=== PATIENT | male | born 1955 | race Caucasian/White ===

== ENCOUNTER 2020-11-19 17:10 | Inpatient (IN) ==
[2020-11-19] MEDS ORDERED: ONDANSETRON INJ 2 MG/ML 2 ML VIAL IV PRN (17:21)
[2020-11-19] MEDS ORDERED: diphenhydrAMINE Capsule 25 MG CAP PO PRN (17:21)
[2020-11-19] MEDS ORDERED: ALUMINUM/MAGNESIUM SUSP 30 ML UDC PO PRN (17:21)
[2020-11-19] MEDS ORDERED: diphenhydrAMINE 50 MG/ML VIAL IV PRN (17:21)
[2020-11-19] MEDS ORDERED: ACETAMINOPHEN 325 MG TAB PO PRN (17:21)
[2020-11-19] MEDS ORDERED: PIPERACILL/TAZOBAC CONSULT ACTIVE PRN (17:28)
[2020-11-19] MEDS ORDERED: VANCOMYCIN CONSULT ACTIVE PRN ×2 (17:28)
[2020-11-19] MEDS ORDERED: oxyCODONE HCL IR 5 MG TAB (IMMEDIATE RELEASE) PO PRN (17:28)
[2020-11-19] MEDS ORDERED: PIPERACILLIN/TAZOBACTAM 3.375 GM in DEXTROSE 5% 100 ML IV SCH (17:30)
[2020-11-19] MEDS ORDERED: VANCOMYCIN HCL 1,000 MG in SODIUM CHLORIDE 0.9% 250 ML IV SCH (17:30)
[2020-11-19] MEDS ORDERED: PATIENT'S HEIGHT AND/OR WEIGHT NEEDED SCH (18:30)
[2020-11-19] MEDS ORDERED: VANCOMYCIN HCL 2,500 MG in SODIUM CHLORIDE 0.9% 500 ML IV STA (18:56)
[2020-11-19] MEDS ORDERED: PIPERACILLIN/TAZOBACTAM 4.5 GM in DEXTROSE 5% 100 ML IV STA (18:59)
--- NOTE | 2020-11-19 19:05 | XRay Report ---
XR chest 2V PA/lateral HISTORY: 65 years-old Male preop/malaise acute malaise COMPARISON: Chest radiograph 04/01/2009 TECHNIQUE: PA and lateral views of the chest FINDINGS: Cardiac mediastinal and hilar silhouettes are within normal limits. No pneumothorax, pleural effusion or overt pulmonary edema. Minimal ill-defined left lung base opacities. Bones appear grossly intact. IMPRESSION: Minimal left lower lobe opacities suggest summation density/atelectasis. ACT 112: Negative or not required by law. The above report was generated using voice recognition software. It may contain grammatical, syntax o r spelling errors. Electronically signed by: Ronnie Greenfield M.D. 11/19/2020 7:04 PM
[2020-11-19 19:40] LABS: Basophils # (auto) 0.04 K/uL (0-0.2); Basophils % (auto) 0.2 %; Eosinophils # (auto) 0.01 K/uL (0-0.5); Hemoglobin 14.6 g/dL (14.0-18.0); Immature Granulocytes # (auto) 0.11 K/uL (0.00-0.02); Immature Granulocytes % (auto) 0.5 %; Lymphocytes # (auto) 1.87 K/uL (1.2-3.4); Mean Corpuscular Hemoglobin 31.4 pg (25-34); Mean Corpuscular Volume 92.5 fL (80-100); Mean Platelet Volume 10.8 fL (7.4-10.4); Monocytes # (auto) 1.59 K/uL (0.11-0.59); Monocytes % (auto) 7.6 %; Neutrophils # (auto) 17.27 K/uL (1.4-6.5); Neutrophils % (auto) 82.7 %; Platelet Count 186 K/uL (130-400); RDW Coefficient of Variation 13.2 % (11.5-14.5); RDW Standard Deviation 44.4 fL (36.4-46.3); Red Blood Count 4.65 M/uL (4.7-6.1); White Blood Count 20.89 K/uL (4.8-10.8)
[2020-11-19 20:06] LABS: Albumin Level 3.4 gm/dl (3.4-5.0); BUN Creatinine Ratio 15.6 (10-20); Calcium 8.8 mg/dl (8.5-10.1); Creatinine Clr Calc Pharmacy 70.6 ml/min; Est GFR (African American) 61.7; Est GFR (Non-African American) 53.3; Potassium 4.4 mmol/L (3.5-5.1)
[2020-11-19 20:09] LABS: Albumin Globulin Ratio 0.9 (0.9-2); Bilirubin,Total 0.7 mg/dl (0.2-1); C Reactive Protein 13.3 mg/dl (0-0.29); Globulin 3.7 gm/dl (2.5-4.0); Total Protein 7.1 gm/dl (6.4-8.2)
--- NOTE | 2020-11-19 20:12 | Hospitalist Consultation ---
Date of Consultation November 19, 2020 Assessment & Plan (1) Suspected soft tissue infection: Infected seroma vs tissue infection Patient on appropriate antibiotics with appropriate cultures sent - Continue Zosyn and Vancomycin as this will provide excellent coverage as you have done- await culture return - Follow biomarkers as you have done- added on PCT and lactate - SIRS-3, qSOFA 0, LRINEC score 5 - As per HPI no local cellulits at site or at surrounding tissue ID consult is available through ID consult and will go to [facility] if further expertise is needed. (2) Metabolic syndrome: Continue statin, and glucose control, patient is controlling his weight with activity (3) Hyperlipidemia: As above (4) Type 2 diabetes mellitus: Hold metformin- placed on sliding scale for goal <180 - tighter control if desired by primary team - NPO after midnight per primary team (5) DVT prophylaxis: Heparin 5000 sub q BID per primary team SCD's Supervising Physician Co-Signing Physician Notes Attending Attestation: Pt seen/examined, chart reviewed, care plan d/w MEGHAN Villarreal. I agree w/ the matos components of his documentation. 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 Most recently he has had a left leg seroma requiring placement of pigtail catheter to hasten resolution of the seroma. Sclerotherapy was being attempted to resolve the seroma as well. Unfortunately he developed subjective fever and increasing pain along the course of the seroma worrisome for infection. Saw Dr Mathews who aspirated 15cc of pink-appearing fluid. Admitted for IV abx and probable I/D of seroma. PMH, PSH, allergies, meds, sochx, famhx - reviewed VSS, no fever gen - NAD, obese mouth - no thrush heart - RRR, s1 s2, no murmur lungs - CTA b/l abd - soft NT BS+ ext - large dressing on lateral left thigh; several old scars left lateral leg; pulses b/l legs 2+ labs reviewed last a1c 6.2% culture from ortho office pending A/P: 1. suspected infected left leg seroma - agree with zosyn/vanco while awaiting cultures; to OR in am for wash-out/I & D 2. obesity 3. pre-DM/early T2DM 4. [facility] will cont to follow. Thanks for consult. Craig Basilio MD History of Present Illness Reason for Consultation: Antibiotics Attending Physician: Duglas Mathews MD History of Present Illness 65 YOM with past medical history of; DM II, sinusitis, sleep apnea, HLD, Fatty liver, DJD, Necrotizing fascitis of left buttocks, chronic infected seroma, BPH. Patient is direct admission from Orthopaedics Dr. Mathews for infected seroma. The patient has been battling this seroma since last February. Originally the patient had a ruptured hamstring with gluteal tendon involvement in October 2019 developed local infection that turned out to be necrotizing fascitis. He went to [place] to have his leg debrided and operated, was closed here locally with wound-vac and close orthopaedics followup. His recovery from this has been undergone sclerotherapy, biological sclerotherapy, and aspirations of this chronic seroma. Most recently in October the patient had a pigtail drain that was placed and continued with doxycycline sclerotherapy and was doing well up until last evening. He started experiencing fevers with rigors at home and was seen by Dr. Mathews today. He withdrew fluid and sent for cultures, sent for admission and is scheduled for drainage and exploration tomorrow. The patient is stable on the floor qSOFA-0; SIRS-3 LRINEC-5 Thank you for allowing us to participate in his care. Allergies Allergy/AdvReac Type Severity Reaction Status Date / Time grass pollen Allergy Verified 10/23/20 10:07 No Known Drug Allergies Allergy Verified 10/23/20 10:07 Home Medications Medication Instructions Recorded Confirmed Type acetaminophen [Tylenol Extra 1,000 mg PO Q8H PRN 11/28/19 10/23/20 History Strength] zinc sulfate [Zinc-220] 1 mg PO DAILY 12/28/19 10/23/20 History atorvastatin 40 mg tablet 40 mg PO HS #30 tab 07/15/20 10/23/20 Rx sildenafil (pulm.hypertension) 20 80 mg PO PRN PRN #120 tab 09/20/20 10/23/20 Rx mg tablet ascorbic acid (vitamin C) 1,000 mg 2 g PO HS tab 10/09/20 10/23/20 History tablet cholecalciferol (vitamin D3) 125 1,500 unit PO DAILY cap 10/09/20 10/23/20 History mcg (5,000 unit) capsule metformin 500 mg tablet 1,500 mg PO DAILY tab 10/09/20 10/23/20 History mecobalamin (vitamin B12) 1,000 1,000 mcg SUBLINGUAL DAILY #30 tab 10/23/20 10/23/20 Rx mcg disintegrating tablet,sublingual enoxaparin 40 mg SUBCUT QAM 14 Days #5.6 ml 11/21/20 Rx oxycodone 5 - 10 mg PO Q4H PRN #12 tab MDD 6 11/22/20 Rx tablets Patient History Medical History Degenerative disc disease, lumbar 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 REASON) Obesity Open wound of thigh with tendon involvement LEFT LOWER EXTREMITY Prediabetes Radicular pain of lower extremity Sensorineural hearing loss (SNHL) of both ears Sensorineural hearing loss (SNHL) of both ears Surgical History History of appendectomy History of colonoscopy History of herniorrhaphy LEFT INGUINAL History of incision and drainage LEFT UPPER BACK THIGH I & D D/T NECROTIZING FASCIITIS (TOTAL 4 SURGERIES). Hx of vasectomy [place] teeth removed Family History Grandmother (Maternal) Family history of diabetes mellitus Father Cancer Leukemia Grandfather Heart disease Brother Asthma FH: kidney cancer Denies family history of Ovarian cancer Prostate cancer Myocardial infarction Breast cancer Colorectal cancer Social History Smoking Status: Never smoker Second Hand Exposure: No; Hx Alcohol Use: Yes Alcohol type: beer Alcohol Intake Frequency: 4 or More x per/Week Hx Substance Use: No Preferred Language: Khmer Communication Ability: Effective Visual Impairment: No Limitations Hearing Ability: Normal Youth Manager Required: No Beliefs That Will Affect Care: None marital status: Current Living Situation: Spouse current occupational status: employed current occupation: [employer] How many Children do You have: 4 Other Information That Helps Us Care for You: No Feels Safe at Home: Yes Safety Concerns: Feels Safe At This Time Childhood Exposure to Second-Hand Smoke: No during the past year weight has: remained stable Dental Care, Regularly: Yes Physical Activity Frequency: Does not Exercise Seatbelt Use: never Sunscreen Use: Yes Assistive Devices: Cane and Glasses Review of Systems Review of Systems: REVIEW OF SYSTEMS: Constitutional: (+) fever, sweats or chills- since resolved Eyes: No diplopia, no worsening or blurred vision ENT: normal hearing, no trouble swallowing Respiratory: No cough, sputum, dyspnea at rest or on exertion Cardiovascular: No chest pain, tightness or palpitations Abdomen: No pain, nausea, vomiting, diarrhea or constipation Musculoskeletal: (+) tenderness to left hamstring area, No joint pain, calf pain, swelling Neurologic: No weakness, numbness/tingling, or balance problems Psychiatric: No anxiety or depression Skin: No rash or itch Physical Exam Physical Exam: PHYSICAL EXAM: General: awake, alert, no apparent distress Head: Normocephalic, atraumatic ENT: PERRL, EOMI, no pharyngeal exudate, mucous membranes moist Neuro: AAO x 3, speech clear and appropriate, strength intact bilaterally 5/5, sensation intact and equal all extremities and dermatomes, no pronator drift Chest: equal rise and fall of the chest, no accessory muscle use, no heaves or thrills, Clear to auscultation, on room air, Cardiac: Regular rate and rhythm, skin warm dry, cap refill <3 seconds, peripheral pulses +2 no JVD, no murmur, no edema GI: NABS x 4 quadrants, soft, nontender to palpation, no rebound, guarding or tenderness : Spontaneously voiding, no pain, no CVA tenderness, Extremities: Normal inspection, no peripheral edema or erythema, calfs nontender to palpation, no errythema, mild pain with palpation of seroma area. The patient has 3x4 area of fluid collection that is not fluctuant, no pain with surrounding muscle palpation. Joints below and above are not sore, no crepitus, and full ROM. Slight tenderness with deep palpation to left glute. Psych: Normal mood and affect Skin: no rash or erythema Results & Data Results & Data ([facility]) Vital Signs (Past 12 Hours) Vital Signs Temp Pulse Resp BP Pulse Ox 11/19/20 17:55 37.5 C 95 H 20 144/73 H 95 Laboratory Results Abnormal lab results 11/19/20 11/19/20 11/19/20 Range/Units 19:11 19:11 19:11 WBC 20.89 H (4.8-10.8) K/uL RBC 4.65 L (4.7-6.1) M/uL MPV 10.8 H (7.4-10.4) fL Neut # (Auto) 17.27 H (1.4-6.5) K/uL [place] # (Auto) 1.59 H (0.11-0.59) K/uL Immature Gran # (Auto) 0.11 H (0.00-0.02) K/uL ESR 17 H (0-14) mm/hr Chloride 109 H (98-107) mmol/L Anion Gap 0 L (3-11) BUN 22 H (7-18) mg/dl Glucose 137 H (70-99) mg/dl C-Reactive Protein 13.30 H (0-0.29) mg/dl Diagnostic Findings NONE Medications Administered Vancomycin HCl 2,500 mg/ (Sodium Chloride) 550 mls @ 200 mls/hr IV NOW STA; Protocol Stop: 11/19/20 21:40 Last Infusion: 11/19/20 20:03 Dose: 0 mls/hr Documented by: [id number] Admin: 11/19/20 20:02 Dose: 200 mls/hr Documented by: [id number] Discontinued Medications Home Medications acetaminophen [Tylenol Extra Strength] 1,000 mg PO Q8H PRN 11/28/19 [History Confirmed 10/23/20] zinc sulfate [Zinc-220] 1 mg PO DAILY 12/28/19 [History Confirmed 10/23/20] atorvastatin 40 mg tablet 40 mg PO HS #30 tab 07/15/20 [Rx Confirmed 10/23/20] sildenafil (pulm.hypertension) 20 mg tablet 80 mg PO PRN PRN #120 tab 09/20/20 [Rx Confirmed 10/23/20] ascorbic acid (vitamin C) 1,000 mg tablet 2 g PO HS tab 10/09/20 [History Confirmed 10/23/20] cholecalciferol (vitamin D3) 125 mcg (5,000 unit) capsule 1,500 unit PO DAILY cap 10/09/20 [History Confirmed 10/23/20] metformin 500 mg tablet 1,500 mg PO DAILY tab 10/09/20 [History Confirmed 10/23/20] mecobalamin (vitamin B12) 1,000 mcg disintegrating tablet,sublingual 1,000 mcg SUBLINGUAL DAILY #30 tab 10/23/20 [Rx Confirmed 10/23/20] Active Medications Acetaminophen (Acetaminophen 325 Mg Tab) 650 mg PO Q6H PRN PRN Reason: Fever or Headache Stop: 12/19/20 17:20 Al Hydrox/Mg Hydrox/Simethicone (Aluminum/Magnesium Susp 30 Ml Udc) 30 ml PO Q6H PRN PRN Reason: Dyspepsia Stop: 12/19/20 17:20 Diphenhydramine HCl (Diphenhydramine Capsule 25 Mg Cap) 25 mg PO Q8H PRN PRN Reason: Itching Stop: 12/19/20 17:20 Diphenhydramine HCl (Diphenhydramine 50 Mg/Ml Vial) 25 mg IV Q8H PRN PRN Reason: Itching Stop: 12/19/20 17:20 Heparin Sodium (Porcine) (Heparin Sod 5,000 Unit/0.5 Ml Vial) 5,000 units SQ Q12 MISTY Stop: 12/19/20 20:59 Sodium Chloride (Nss 1000ml) 1,000 mls @ 100 mls/hr IV .Q10H MISTY Stop: 12/20/20 00:04 Vancomycin HCl 1,000 mg/ (Sodium Chloride) 270 mls @ 200 mls/hr IV Q12H MISTY; Protocol Stop: 11/21/20 17:29 Piperacillin Sod/Tazobactam (Sod 3.375 gm/ Dextrose) 115 mls @ 28.75 mls/hr IV Q8H MISTY; Protocol Stop: 11/21/20 17:29 Vancomycin HCl 2,500 mg/ (Sodium Chloride) 550 mls @ 200 mls/hr IV NOW STA; Protocol Stop: 11/19/20 21:40 Last Infusion: 11/19/20 20:03 Dose: 0 mls/hr Documented by: Miscellaneous Information (Vancomycin Consult Active) 1 ea N/A UD PRN PRN Reason: Consult Stop: 12/19/20 17:27 Miscellaneous Information (Piperacill/Tazobac Consult Active) 1 ea N/A UD PRN PRN Reason: Consult Stop: 12/19/20 17:27 Ondansetron HCl (Ondansetron Inj 2 Mg/Ml 2 Ml Vial) 4 mg IV Q6H PRN PRN Reason: Nausea/Vomiting Stop: 12/19/20 17:20 Oxycodone HCl (Oxycodone Hcl Ir 5 Mg Tab (Immediate Release)) 5 mg PO NOW PRN PRN Reason: Pain Stop: 12/03/20 17:27 Piperacillin Sod/Tazobactam (Sod 4.5 gm/ Dextrose) 120 mls @ 200 mls/hr IV NOW STA; Protocol Stop: 11/19/20 19:34 Last Admin: 11/19/20 20:04 Dose: 200 mls/hr Documented by: [id number] Miscellaneous (Patient's Height And/Or Weight Needed) 1 ea N/A Q30M MISTY Stop: 12/19/20 18:29 Last Admin: 11/19/20 19:11 Dose: Not Given Documented by: [id number] ECG Additional Comments: Normal sinus rhythm Normal ECG When compared with ECG of 30-OCT-2019 13:01, No significant change was found PG Care Time/CCT Total # of Minutes Spent Total Time Spent with Patient: Total time spent is greater than 50% in coordination of care (as documented) at patient's floor/unit and/or counseling patient: Coding Level of Care Code 27601 Inpt Consult Level 3 Diagnoses Suspected soft tissue infection R68.89 Metabolic syndrome E88.81 Hyperlipidemia E78.5 Hyperlipidemia type: unspecified Type 2 diabetes mellitus E11.69 Diabetes mellitus complication status: with other specified complication Diabetes mellitus vibratory pile driver insulin use: without vibratory pile driver use DVT prophylaxis Z29.9 (1) Type 2 diabetes mellitus Diabetes mellitus complication status: with other specified complication Diabetes mellitus vibratory pile driver insulin use: without vibratory pile driver use Qualified Code(s): E11.69 - Type 2 diabetes mellitus with other specified complication (2) Hyperlipidemia Hyperlipidemia type: unspecified Qualified Code(s): E78.5 - Hyperlipidemia, unspecified
--- NOTE | 2020-11-19 20:36 | History & Physical Report ---
Date of Service November 19, 2020 Assessment & Plan (1) Suspected soft tissue infection: (2) Traumatic seroma of left thigh: History of Present Illness Chief Complaint: Left thigh pain, malaise Primary Care Provider: Jamie Juarez DO 65-year-old male with a history significant for October 2019 left posterior thigh deep soft tissue necrotizing fasciitis, treated with radical debridement before transfer to [facility], and subsequent large wound closure with serial wound VAC and delayed primary closure, complicated by subcutaneous seroma formation for the past several months. He had been undergoing outpatient sclerotherapy which did reduce the seromatous fluid production. 6 days ago, a percutaneous pigtail catheter was placed for residual seromatous fluid formation. The doxycycline sclerotherapy treatment was performed again at the time of percutaneous insertion with a 48-hour dwell time before continuous suction drainage. Unfortunately, he developed mild pain along his left buttock, malaise, and subjective fever today. He contacted our clinic and we evaluated him today. His drain site looked well, but I was able to pull off 15 cc of pink purulent drainage, which was significantly different from previous serous drainage. The drain or catheter was pulled in clinic, and the aspiration was sent for culture. I recommended admission today for empiric antibiotics and subsequent irrigation debridement of the posterior thigh. He reported tolerable pain but admitted fatigue. He was able to walk. He denies any chest pain. He has been Covid vaccinated for 2 weeks. Allergies Allergy/AdvReac Type Severity Reaction Status Date / Time grass pollen Allergy Verified 10/23/20 10:07 No Known Drug Allergies Allergy Verified 10/23/20 10:07 Home Medications Medication Instructions Recorded Confirmed Type acetaminophen [Tylenol Extra 1,000 mg PO Q8H PRN 11/28/19 10/23/20 History Strength] zinc sulfate [Zinc-220] 1 mg PO DAILY 12/28/19 10/23/20 History atorvastatin 40 mg tablet 40 mg PO HS #30 tab 07/15/20 10/23/20 Rx sildenafil (pulm.hypertension) 20 80 mg PO PRN PRN #120 tab 09/20/20 10/23/20 Rx mg tablet ascorbic acid (vitamin C) 1,000 mg 2 g PO HS tab 10/09/20 10/23/20 History tablet cholecalciferol (vitamin D3) 125 1,500 unit PO DAILY cap 10/09/20 10/23/20 History mcg (5,000 unit) capsule metformin 500 mg tablet 1,500 mg PO DAILY tab 10/09/20 10/23/20 History mecobalamin (vitamin B12) 1,000 1,000 mcg SUBLINGUAL DAILY #30 tab 10/23/20 10/23/20 Rx mcg disintegrating tablet,sublingual Past Med/Surg History Medical History Degenerative disc disease, 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 REASON) Obesity Open wound of thigh with tendon involvement LEFT LOWER EXTREMITY Prediabetes Radicular pain of lower extremity Sensorineural hearing loss (SNHL) of both ears Sensorineural hearing loss (SNHL) of both ears Surgical History History of appendectomy History of colonoscopy History of herniorrhaphy LEFT INGUINAL History of incision and drainage LEFT UPPER BACK THIGH I & D D/T NECROTIZING FASCIITIS (TOTAL 4 SURGERIES). Hx of vasectomy [place] teeth removed Family History Grandmother (Maternal) Family history of diabetes mellitus Father Cancer Leukemia Grandfather Heart disease Brother Asthma FH: kidney cancer Denies family history of Ovarian cancer Prostate cancer Myocardial infarction Breast cancer Colorectal cancer Social History Smoking Status: Never smoker Second Hand Exposure: No; Hx Alcohol Use: Yes Alcohol type: beer Alcohol Intake Frequency: 4 or More x per/Week Hx Substance Use: No Preferred Language: Portuguese Communication Ability: Effective Visual Impairment: No Limitations Hearing Ability: Normal Tester Equipment Required: No Beliefs That Will Affect Care: None marital status: Current Living Situation: Spouse current occupational status: employed current occupation: [employer] How many Children do You have: 4 Other Information That Helps Us Care for You: No Feels Safe at Home: Yes Safety Concerns: Feels Safe At This Time Childhood Exposure to Second-Hand Smoke: No during the past year weight has: remained stable Dental Care, Regularly: Yes Physical Activity Frequency: Does not Exercise Seatbelt Use: never Sunscreen Use: Yes Assistive Devices: Cane and Glasses Review of Systems All systems reviewed & are unremarkable except as noted in HPI & below. Physical Exam LLE: The posterior thigh was decompressed of significant fluid which is improved from previous exams. The drain site had no evidence of expressible drainage, erythema, nor tenderness. The inferior buttock and gluteal cleft and mild tenderness but no palpable crepitus. The posterior thigh had no tenderness and the drain was somewhat palpable and decompressed subcutaneous space. There was no erythema or edema about the skin in the thigh. The buttock skin was not erythematous or edematous either. He was neurovascularly intact. The knee seemed uninvolved. He was ambulatory. Constitutional well developed and well nourished; no acute distress and not intoxicated appearing ENMT external ear and nose normal, oropharynx normal Respiratory normal respiratory effort; no respiratory distress Cardiovascular Extremities: normal capillary refill; no edema Skin no rashes, warm and dry Psychiatric A+Ox3, euthymic affect Results & Data Results & Data Laboratory Results . H & H 11/19/20 Range/Units 19:11 Hgb 14.6 (14.0-18.0) g/dL Hct 43.0 (42-52) % Laboratory Tests 11/19/20 11/19/20 11/19/20 19:11 19:11 19:11 WBC 20.89 H Neut # (Auto) 17.27 H ESR 17 H C-Reactive Protein 13.[address] left femur pending PG Care Time/CCT Total # of Minutes Spent Total Time Spent with Patient: Total time spent is greater than 50% in coordination of care (as documented) at patient's floor/unit and/or counseling patient: Coding Level of Care Code 63861 Initial Inpt Care Lvl 3 (57 - DECISION FOR SURGERY) Diagnoses Suspected soft tissue infection R68.89 Traumatic seroma of left thigh T79.2XXS Encounter type: sequela (1) Traumatic seroma of left thigh Encounter type: sequela Qualified Code(s): T79.2XXS - Traumatic secondary and recurrent hemorrhage and seroma, sequela
[2020-11-19] MEDS ORDERED: DEXTROSE 50% 50 ML SYRINGE IV PRN (20:45)
[2020-11-19] MEDS ORDERED: CARBOHYDRATES FOR HYPOGLYCEMIA PO PRN (20:45)
[2020-11-19] MEDS ORDERED: GLUCOSE 10 TABS/TUBE PO PRN (20:45)
[2020-11-19] MEDS ORDERED: GLUCOSE 40% GEL 15 GM TUBE PO PRN (20:45)
[2020-11-19] MEDS ORDERED: GLUCAGON FOR INJ 1 MG VIAL SQ PRN (20:45)
[2020-11-19] MEDS: HEPARIN SOD 5,000 UNIT/0.5 ML VIAL SQ SCH (20:47)
--- NOTE | 2020-11-19 20:47 | Pharmacy Report ---
Pharmacy Abx Initial Consult - Date of Service November 19, 2020 - Pharmacy Dosing Scope Date of Consult: 11/19/20 Consultation requested by: Dr. Matehws Pharmacy is consulted to initiate Vancomycin and Zosyn IV dosing therapy, order appropriate labs and adjust drug dose/frequency. - Subjective The patient is a 65 year old M admitted on 11/19/20 17:51. - Objective Height: 5 ft 11 in Weight: 121 kg Vital Signs (Past 12hrs): Vital Signs Temp Pulse Resp BP Pulse Ox 11/19/20 17:55 37.5 C 95 H 20 144/73 H 95 Lab Results (24hrs): Laboratory Tests (24 Hours) 11/19/20 11/19/20 11/19/20 19:11 19:11 19:11 WBC 20.89 H Neut # (Auto) 17.27 H ESR 17 H Creatinine 1.38 Est Cr Clr Drug Dosing 70.6 C-Reactive Protein 13.30 H Micro Results: 11/19/20 16:25 Gram Stain - Pending Thigh Aerobic and Anaerobic Culture - Pending - Risk Factors for Resistance * History of infection with a multidrug-resistant organism: - Assessment & Plan Assessment 65 year old M admitted secondary to left thigh wound previously described as necrotizing fasciitis * Afebrile. Leukocytosis of 21k. SCr slightly elevated from baseline. Cultures pending. Plan Vancomycin and Zosyn for empiric (48 hour stop date) treatment of skin and skin structure infection Vancomycin IV * Loading dose: 2500 mg (21 mg/kg) * Maintenance dose: 1500 mg IV (12 mg/kg) every 12 hours * Goal trough level: 15 to 20 mcg/mL * No level ordered as this time given empiric indication and likelihood of renal fxn improving Piperacillin/tazobactam * 4.5 g bolus administered over 30 minutes, then 4.5 g IV extended infusion every 8 hours for CrCl greater than 20 mL/min * Aggressive dosing selected due to BMI 35 or more. Pharmacy will continue to follow and will adjust dose/frequency as necessary. Thank you.
[2020-11-19] MEDS ORDERED: INSULIN ASPART 100 UNITS/ML 3 ML PEN SC SCH (21:00)
[2020-11-19] MEDS ORDERED: OPTIRAY 320 100ml IV ONE (21:08)
[2020-11-20] MEDS: SODIUM CHLORIDE 0.9% 1000ML 1,000 ML IV SCH ×2 (00:26→10:34)
[2020-11-20] MEDS: PIPERACILLIN/TAZOBACTAM 4.5 GM in DEXTROSE 5% 100 ML IV SCH ×4 (00:27→23:55)
[2020-11-20 01:14] LABS: Influenza A virus by PCR Negative (Neg); Influenza B virus by PCR Negative (Neg); RSV by PCR Negative (Neg); SARS CoV2 RNA(COVID-19) InHosp NEGATIVE (Negative)
[2020-11-20] MEDS ORDERED: Nursing to Pharmacy Communication SCH ×2 (05:45→17:15)
[2020-11-20] MEDS: INSULIN ASPART 100 UNITS/ML 3 ML PEN SC SCH ×4 (06:17→20:56)
--- NOTE | 2020-11-20 07:21 | CT Scan Report ---
CT femur LT w con CT DOSE: 757.30 mGy.cm CLINICAL HISTORY: Posterior thigh seroma infection. TECHNIQUE: Helical images were acquired in the transverse plane. Sagittal and coronal reformatted hector ges were acquired. A dose lowering technique was utilized adhering to the principles of ALARA. COMPARISON STUDY: CT scan dated 10/30/2019, MRI dated 04/29/2020 FINDINGS: There is a fat-containing left inguinal hernia. There is mild prostatomegaly and bladder wall thickening. No acute fractures are visualized. There are no destructive lesions to indicate acute osteomyelitis. Within the posterior soft tissues there is a pancake-like soft tissue lesion measuring 1.5 x 12 x 37 cm. This appears thick walled with trace central fluid. There are no drainable collections to indicat e an abscess. There is surrounding edema involving the adjacent posterior muscular group. IMPRESSION: 37 x 12 x 1.5 cm soft tissue lesion involving the posterior thigh, containing trace flui d. This is consistent with old seroma, and appears smaller than on the prior April 2020 MRI study . There are no drainable fluid collections. Underlying infection cannot be excluded. ACT 112: Negative or not required by law. Electronically signed by: Josue Mercado M.D. 11/20/2020 7:20 AM
[2020-11-20] MEDS ORDERED: VANCOMYCIN HCL 1,500 MG in SODIUM CHLORIDE 0.9% 500 ML IV SCH (08:00)
[2020-11-20] MEDS: HEPARIN SOD 5,000 UNIT/0.5 ML VIAL SQ SCH (08:28)
[2020-11-20 08:38] LABS: Estimated Average Glucose 131 mg/dl; Hemoglobin A1C 6.2 % (4.5-5.6)
--- NOTE | 2020-11-20 09:32 | Hospitalist Progress Note ---
Date of Service November 20, 2020 Assessment & Plan (1) Suspected soft tissue infection: * Infected seroma vs tissue infection in patient with hx nec fasciitis * CT LEFT FEMUR: 37 x 12 x 1.5 cm soft tissue lesion involving the posterior thigh, containing trace fluid. This is consistent with old seroma, and appears smaller than on the prior April 2020 MRI study. There are no drainable fluid collections. Underlying infection cannot be excluded * Management per orthopedics/primary service * WBC 20.8k--> 14.89k. Afebrile * On Vanco/Zosyn (day 2) -- continued * NPO for I&D this afternoon * Placed on NSS @ 100cc/hr for now * Initial cultures from wound with many WBC, many gram + cocci * No blood cultures obtained on admission * CRP 13.3 (prior October) -- repeat in AM * Lactic wnl * Procal elevated 2.58 * Pain control, antiemetics prn * Heparin SQ for DVT proph * CXR pre-op with likely summation/atelectasis LLL/lingula. Repeat without acute process. 98% on RA and lungs clear to auscultation * EKG SNR * SIRS-3, qSOFA 0, LRINEC score 5 * As per HPI no local cellulitis at site or at surrounding tissue ID consult is available through ID consult and will go to [facility] if further expertise is needed. 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 NPO for OR today Thank you for allowing hospitalist service to participate in the care of Mr. Kelly. Hospitalist service will follow along. Admission and Anticipated Discharge Date Admission Date: November 19, 2020 Subjective Patient evaluated this morning. Laying in bed watching TV. Pain much improved from yesterday. No further fevers/chills. Plans for OR shortly for I&D. No chest pain, shortness of breath, abdominal pain, nausea or vomiting. Has not moved bowels since Wednesday but he states he typically only moves his bowels 2x/week and this is normal for him. Hopeful for discharge tomorrow but states Dr. Mathews said that may be the earliest to ensure abx working. Questions/concerns addressed at this time. Review of Systems Review of Systems: All systems reviewed & are unremarkable except as noted in HPI & below Physical Exam Physical Exam: PHYSICAL EXAM: General: awake, alert, no apparent distress, laying comfortably in bed watching TV Head: Normocephalic, atraumatic ENT: PERRL, EOMI, no pharyngeal exudate, mucous membranes moist Neuro: AAO x 3, speech clear and appropriate, strength intact bilaterally 5/5, sensation intact and equal all extremities and dermatomes, no pronator drift Chest: equal rise and fall of the chest, no accessory muscle use, no heaves or thrills, Clear to auscultation, on room air, Cardiac: Regular rate and rhythm, skin warm dry, cap refill <3 seconds, peripheral pulses +2 no JVD, no murmur, no edema GI: NABS x 4 quadrants, soft, nontender to palpation, no rebound, guarding or tenderness : Spontaneously voiding, no pain, no CVA tenderness, Extremities/Skin: no peripheral edema, calves nontender to palpation, no erythema, no pain with palpation of seroma area but does have some ecchymosis with bandage over drainage c/d/i. The patient has 3x4 area of fluid collection that is not fluctuant, no pain with surrounding muscle palpation. Joints below and above are not sore, no crepitus, and full ROM. Slight tenderness with deep palpation to left gluteus. Psych: Normal mood and affect Results & Data Results & Data ([facility]) Vital Signs (Past 12 Hours) Vital Signs Temp Pulse Resp BP Pulse Ox 11/20/20 07:14 36.8 C 76 18 123/73 98 Laboratory Results 11/20/20 11/20/20 11/20/20 Range/Units Unknown Unknown 09:57 WBC (4.8-10.8) K/uL RBC (4.7-6.1) M/uL Hgb (14.0-18.0) g/dL Hct (42-52) % MCV (80-100) fL MCH (25-34) pg MCHC (32-36) g/dL RDW Std Deviation (36.4-46.3) fL RDW Coeff of Daniel (11.5-14.5) % Plt Count (130-400) K/uL MPV (7.4-10.4) fL Immature Gran % (Auto) % Neut % (Auto) % Lymph % (Auto) % Alcorn % (Auto) % Eos % (Auto) % Baso % (Auto) % Neut # (Auto) (1.4-6.5) K/uL Lymph # (Auto) (1.2-3.4) K/uL Alcorn # (Auto) (0.11-0.59) K/uL Eos # (Auto) (0-0.5) K/uL Baso # (Auto) (0-0.2) K/uL Immature Gran # (Auto) (0.00-0.02) K/uL ESR (0-14) mm/hr Sodium 139 (136-145) mmol/L Potassium 4.0 (3.5-5.1) mmol/L Chloride 110 H (98-107) mmol/L Carbon Dioxide 27 (21-32) mmol/L Anion Gap 2.0 L (3-11) BUN 16 (7-18) mg/dl Creatinine 0.93 (0.6-1.4) mg/dl Est Cr Clr Drug Dosing 104.8 ml/min Est GFR ( Amer) 99.5 Est GFR (Non-Af Amer) 85.8 BUN/Creatinine Ratio 16.8 (10-20) Glucose 128 H (70-99) mg/dl POC Glucose (70-99) mg/dl Estimat Average Glucose mg/dl Hemoglobin A1c (4.5-5.6) % Lactate (0.4-2.0) mmol/L Calcium 8.8 (8.5-10.1) mg/dl Total Bilirubin 0.7 (0.2-1) mg/dl AST 14 L (15-37) U/L ALT 41 (12-78) U/L Alkaline Phosphatase 70 (45-117) U/L C-Reactive Protein (0-0.29) mg/dl Total Protein 6.5 (6.4-8.2) gm/dl Albumin 3.3 L (3.4-5.0) gm/dl Globulin 3.2 (2.5-4.0) gm/dl Albumin/Globulin Ratio 1.0 (0.9-2) Procalcitonin (0-0.5) ng/ml COVID-19 Eval Order CovFluRsv at [facility] SARS-CoV-2 (PCR) NEGATIVE (Negative) Influenza Type A (PCR) Negative (Neg) Influenza Type B (PCR) Negative (Neg) RSV (RT-PCR) Negative (Neg) 11/20/20 11/20/20 11/20/20 Range/Units 09:57 08:57 05:44 WBC 14.89 H (4.8-10.8) K/uL RBC 4.42 L (4.7-6.1) M/uL Hgb 14.1 (14.0-18.0) g/dL Hct 40.7 L (42-52) % MCV 92.1 (80-100) fL MCH 31.9 (25-34) pg MCHC 34.6 (32-36) g/dL RDW Std Deviation 44.3 (36.4-46.3) fL RDW Coeff of Daniel 13.2 (11.5-14.5) % Plt Count 185 (130-400) K/uL MPV 10.4 (7.4-10.4) fL Immature Gran % (Auto) 0.2 % Neut % (Auto) 79.0 % Lymph % (Auto) 14.2 % Alcorn % (Auto) 5.8 % Eos % (Auto) 0.5 % Baso % (Auto) 0.3 % Neut # (Auto) 11.75 H (1.4-6.5) K/uL Lymph # (Auto) 2.12 (1.2-3.4) K/uL Alcorn # (Auto) 0.87 H (0.11-0.59) K/uL Eos # (Auto) 0.08 (0-0.5) K/uL Baso # (Auto) 0.04 (0-0.2) K/uL Immature Gran # (Auto) 0.03 H (0.00-0.02) K/uL ESR (0-14) mm/hr Sodium (136-145) mmol/L Potassium (3.5-5.1) mmol/L Chloride (98-107) mmol/L Carbon Dioxide (21-32) mmol/L Anion Gap (3-11) BUN (7-18) mg/dl Creatinine 1.00 D (0.6-1.4) mg/dl Est Cr Clr Drug Dosing 97.5 ml/min Est GFR ( Amer) 91.1 Est GFR (Non-Af Amer) 78.6 BUN/Creatinine Ratio (10-20) Glucose (70-99) mg/dl POC Glucose 133 H (70-99) mg/dl Estimat Average Glucose mg/dl Hemoglobin A1c (4.5-5.6) % Lactate (0.4-2.0) mmol/L Calcium (8.5-10.1) mg/dl Total Bilirubin (0.2-1) mg/dl AST (15-37) U/L ALT (12-78) U/L Alkaline Phosphatase (45-117) U/L C-Reactive Protein (0-0.29) mg/dl Total Protein (6.4-8.2) gm/dl Albumin (3.4-5.0) gm/dl Globulin (2.5-4.0) gm/dl Albumin/Globulin Ratio (0.9-2) Procalcitonin (0-0.5) ng/ml COVID-19 Eval Order SARS-CoV-2 (PCR) (Negative) Influenza Type A (PCR) (Neg) Influenza Type B (PCR) (Neg) RSV (RT-PCR) (Neg) 11/19/20 11/19/20 11/19/20 Range/Units 21:24 21:16 20:32 WBC (4.8-10.8) K/uL RBC (4.7-6.1) M/uL Hgb (14.0-18.0) g/dL Hct (42-52) % MCV (80-100) fL MCH (25-34) pg MCHC (32-36) g/dL RDW Std Deviation (36.4-46.3) fL RDW Coeff of Daniel (11.5-14.5) % Plt Count (130-400) K/uL MPV (7.4-10.4) fL Immature Gran % (Auto) % Neut % (Auto) % Lymph % (Auto) % Alcorn % (Auto) % Eos % (Auto) % Baso % (Auto) % Neut # (Auto) (1.4-6.5) K/uL Lymph # (Auto) (1.2-3.4) K/uL Alcorn # (Auto) (0.11-0.59) K/uL Eos # (Auto) (0-0.5) K/uL Baso # (Auto) (0-0.2) K/uL Immature Gran # (Auto) (0.00-0.02) K/uL ESR (0-14) mm/hr Sodium (136-145) mmol/L Potassium (3.5-5.1) mmol/L Chloride (98-107) mmol/L Carbon Dioxide (21-32) mmol/L Anion Gap (3-11) BUN (7-18) mg/dl Creatinine (0.6-1.4) mg/dl Est Cr Clr Drug Dosing ml/min Est GFR ( Amer) Est GFR (Non-Af Amer) BUN/Creatinine Ratio (10-20) Glucose (70-99) mg/dl POC Glucose 117 H (70-99) mg/dl Estimat Average Glucose mg/dl Hemoglobin A1c (4.5-5.6) % Lactate 1.2 (0.4-2.0) mmol/L Calcium (8.5-10.1) mg/dl Total Bilirubin (0.2-1) mg/dl AST (15-37) U/L ALT (12-78) U/L Alkaline Phosphatase (45-117) U/L C-Reactive Protein (0-0.29) mg/dl Total Protein (6.4-8.2) gm/dl Albumin (3.4-5.0) gm/dl Globulin (2.5-4.0) gm/dl Albumin/Globulin Ratio (0.9-2) Procalcitonin 2.58 H (0-0.5) ng/ml COVID-19 Eval Order SARS-CoV-2 (PCR) (Negative) Influenza Type A (PCR) (Neg) Influenza Type B (PCR) (Neg) RSV (RT-PCR) (Neg) 11/19/20 11/19/20 11/19/20 Range/Units 19:11 19:11 19:11 WBC (4.8-10.8) K/uL RBC (4.7-6.1) M/uL Hgb (14.0-18.0) g/dL Hct (42-52) % MCV (80-100) fL MCH (25-34) pg MCHC (32-36) g/dL RDW Std Deviation (36.4-46.3) fL RDW Coeff of Daniel (11.5-14.5) % Plt Count (130-400) K/uL MPV (7.4-10.4) fL Immature Gran % (Auto) % Neut % (Auto) % Lymph % (Auto) % Alcorn % (Auto) % Eos % (Auto) % Baso % (Auto) % Neut # (Auto) (1.4-6.5) K/uL Lymph # (Auto) (1.2-3.4) K/uL Alcorn # (Auto) (0.11-0.59) K/uL Eos # (Auto) (0-0.5) K/uL Baso # (Auto) (0-0.2) K/uL Immature Gran # (Auto) (0.00-0.02) K/uL ESR 17 H (0-14) mm/hr Sodium 139 (136-145) mmol/L Potassium 4.4 (3.5-5.1) mmol/L Chloride 109 H (98-107) mmol/L Carbon Dioxide 30 (21-32) mmol/L Anion Gap 0 L (3-11) BUN 22 H (7-18) mg/dl Creatinine 1.38 (0.6-1.4) mg/dl Est Cr Clr Drug Dosing 70.6 ml/min Est GFR ( Amer) 61.7 Est GFR (Non-Af Amer) 53.3 BUN/Creatinine Ratio 15.6 (10-20) Glucose 137 H (70-99) mg/dl POC Glucose (70-99) mg/dl Estimat Average Glucose 131 mg/dl Hemoglobin A1c 6.2 H (4.5-5.6) % Lactate (0.4-2.0) mmol/L Calcium 8.8 (8.5-10.1) mg/dl Total Bilirubin 0.7 (0.2-1) mg/dl AST 18 (15-37) U/L ALT 52 (12-78) U/L Alkaline Phosphatase 77 (45-117) U/L C-Reactive Protein 13.30 H (0-0.29) mg/dl Total Protein 7.1 (6.4-8.2) gm/dl Albumin 3.4 (3.4-5.0) gm/dl Globulin 3.7 (2.5-4.0) gm/dl Albumin/Globulin Ratio 0.9 (0.9-2) Procalcitonin (0-0.5) ng/ml COVID-19 Eval Order SARS-CoV-2 (PCR) (Negative) Influenza Type A (PCR) (Neg) Influenza Type B (PCR) (Neg) RSV (RT-PCR) (Neg) 11/19/20 Range/Units 19:11 WBC 20.89 H (4.8-10.8) K/uL RBC 4.65 L (4.7-6.1) M/uL Hgb 14.6 (14.0-18.0) g/dL Hct 43.0 (42-52) % MCV 92.5 (80-100) fL MCH 31.4 (25-34) pg MCHC 34.0 (32-36) g/dL RDW Std Deviation 44.4 (36.4-46.3) fL RDW Coeff of Daniel 13.2 (11.5-14.5) % Plt Count 186 (130-400) K/uL MPV 10.8 H (7.4-10.4) fL Immature Gran % (Auto) 0.5 % Neut % (Auto) 82.7 % Lymph % (Auto) 9.0 % Alcorn % (Auto) 7.6 % Eos % (Auto) 0.0 % Baso % (Auto) 0.2 % Neut # (Auto) 17.27 H (1.4-6.5) K/uL Lymph # (Auto) 1.87 (1.2-3.4) K/uL Alcorn # (Auto) 1.59 H (0.11-0.59) K/uL Eos # (Auto) 0.01 (0-0.5) K/uL Baso # (Auto) 0.04 (0-0.2) K/uL Immature Gran # (Auto) 0.11 H (0.00-0.02) K/uL ESR (0-14) mm/hr Sodium (136-145) mmol/L Potassium (3.5-5.1) mmol/L Chloride (98-107) mmol/L Carbon Dioxide (21-32) mmol/L Anion Gap (3-11) BUN (7-18) mg/dl Creatinine (0.6-1.4) mg/dl Est Cr Clr Drug Dosing ml/min Est GFR ( Amer) Est GFR (Non-Af Amer) BUN/Creatinine Ratio (10-20) Glucose (70-99) mg/dl POC Glucose (70-99) mg/dl Estimat Average Glucose mg/dl Hemoglobin A1c (4.5-5.6) % Lactate (0.4-2.0) mmol/L Calcium (8.5-10.1) mg/dl Total Bilirubin (0.2-1) mg/dl AST (15-37) U/L ALT (12-78) U/L Alkaline Phosphatase (45-117) U/L C-Reactive Protein (0-0.29) mg/dl Total Protein (6.4-8.2) gm/dl Albumin (3.4-5.0) gm/dl Globulin (2.5-4.0) gm/dl Albumin/Globulin Ratio (0.9-2) Procalcitonin (0-0.5) ng/ml COVID-19 Eval Order SARS-CoV-2 (PCR) (Negative) Influenza Type A (PCR) (Neg) Influenza Type B (PCR) (Neg) RSV (RT-PCR) (Neg) Diagnostic Findings XR chest 1V portable HISTORY: 65 years-old Male f/u, pre-op seroma of the left thigh. COMPARISON: Chest radiograph 11/19/2020 TECHNIQUE: Portable AP view the chest FINDINGS: Cardiomediastinal and hilar silhouettes are within normal limits. No pneumothorax, pleural effusion, airspace consolidation or overt pulmonary edema. The previously questioned left lung base opacities are not identified. Degenerative changes of the shoulders and spine. IMPRESSION: No acute process. PG Care Time/CCT Total # of Minutes Spent Total Time Spent with Patient: Total time spent is greater than 50% in coordination of care (as documented) at patient's floor/unit and/or counseling patient: Coding Level of Care Code 07624 Subseq Hosp Care Lvl 3 Diagnoses Suspected soft tissue infection R68.89 Metabolic syndrome E88.81 Hyperlipidemia E78.5 Hyperlipidemia type: unspecified Type 2 diabetes mellitus E11.69 Diabetes mellitus terminal carman insulin use: without nursing home use Diabetes mellitus complication status: with other specified complication DVT prophylaxis Z29.9 (1) Hyperlipidemia Hyperlipidemia type: unspecified Qualified Code(s): E78.5 - Hyperlipidemia, unspecified (2) Type 2 diabetes mellitus Diabetes mellitus terminal carman insulin use: without nursing home use Diabetes mellitus complication status: with other specified complication Qualified Code(s): E11.69 - Type 2 diabetes mellitus with other specified complication
[2020-11-20 09:53] LABS: Creatinine Clr Calc Pharmacy 97.5 ml/min; Est GFR (African American) 91.1; Est GFR (Non-African American) 78.6
[2020-11-20 10:19] LABS: Basophils # (auto) 0.04 K/uL (0-0.2); Basophils % (auto) 0.3 %; Eosinophils # (auto) 0.08 K/uL (0-0.5); Eosinophils % (auto) 0.5 %; Hematocrit (blood only) 40.7 % (42-52); Hemoglobin 14.1 g/dL (14.0-18.0); Immature Granulocytes # (auto) 0.03 K/uL (0.00-0.02); Immature Granulocytes % (auto) 0.2 %; Lymphocytes # (auto) 2.12 K/uL (1.2-3.4); Lymphocytes % (auto) 14.2 %; Mean Corpuscular Hemoglobin 31.9 pg (25-34); Mean Corpuscular Hgb Conc 34.6 g/dL (32-36); Mean Corpuscular Volume 92.1 fL (80-100); Mean Platelet Volume 10.4 fL (7.4-10.4); Monocytes # (auto) 0.87 K/uL (0.11-0.59); Monocytes % (auto) 5.8 %; Neutrophils # (auto) 11.75 K/uL (1.4-6.5); Platelet Count 185 K/uL (130-400); RDW Coefficient of Variation 13.2 % (11.5-14.5); RDW Standard Deviation 44.3 fL (36.4-46.3); Red Blood Count 4.42 M/uL (4.7-6.1); White Blood Count 14.89 K/uL (4.8-10.8)
--- NOTE | 2020-11-20 10:27 | XRay Report ---
XR chest 1V portable HISTORY: 65 years-old Male f/u, pre-op seroma of the left thigh. COMPARISON: Chest radiograph 11/19/2020 TECHNIQUE: Portable AP view the chest FINDINGS: Cardiomediastinal and hilar silhouettes are within normal limits. No pneumothorax, pleural effusion, airspace consolidation or overt pulmonary edema. The previously questioned left lung base opacities a re not identified. Degenerative changes of the shoulders and spine. IMPRESSION: No acute process. ACT 112: Negative or not required by law. The above report was generated using voice recognition software. It may contain grammatical, syntax o r spelling errors. Electronically signed by: Ronnie Greenfield M.D. 11/20/2020 10:25 AM
[2020-11-20 10:37] LABS: Albumin Level 3.3 gm/dl (3.4-5.0); BUN Creatinine Ratio 16.8 (10-20); Calcium 8.8 mg/dl (8.5-10.1); Creatinine Clr Calc Pharmacy 104.8 ml/min; Est GFR (African American) 99.5; Est GFR (Non-African American) 85.8
[2020-11-20 10:40] LABS: Bilirubin,Total 0.7 mg/dl (0.2-1); Globulin 3.2 gm/dl (2.5-4.0); Total Protein 6.5 gm/dl (6.4-8.2)
[2020-11-20] MEDS ORDERED: LIDOCAINE HCL 2% 2 ML VIAL/AMP(20MG/ML) INFIL ONE ×2 (12:05→12:11)
[2020-11-20] MEDS ORDERED: fentaNYL citrate 100 MCG/2 ML VIAL ONE ×3 (12:05→14:51)
[2020-11-20] MEDS ORDERED: MIDAZOLAM HCL 1 MG/ML 2ML VIAL ONE ×2 (12:05→12:11)
[2020-11-20] MEDS ORDERED: DEXAMETHASONE SOD INJ 4 MG/ML VIAL ONE (12:05)
[2020-11-20] MEDS ORDERED: PROPOFOL IV EMULSION 10 MG/ML 20 ML VIAL IV ONE ×3 (12:05→13:36)
[2020-11-20] MEDS ORDERED: ONDANSETRON INJ 2 MG/ML 2 ML VIAL ONE ×2 (12:05→12:11)
[2020-11-20] MEDS ORDERED: ROCURONIUM BROMIDE 10 MG/ML 5 ML VIAL IV ONE (12:11)
--- NOTE | 2020-11-20 12:53 | Electrocardiogram Report ---
Test Reason : Blood Pressure : / mmHG Vent. Rate : 091 BPM Atrial Rate : 091 BPM P-R Int : 166 ms QRS Dur : 084 ms QT Int : 350 ms P-R-T Axes : 053 026 028 degrees QTc Int : 430 ms Normal sinus rhythm Normal ECG When compared with ECG of 30-OCT-2019 13:01, No significant change was found Confirmed by Reginaldo Lopez ([id number]) on 11/20/2020 12:53:26 PM Referred By: Duglas Mathews Confirmed By:Reginaldo Lopez
[2020-11-20] MEDS ORDERED: ATROPINE SULFATE 0.1 MG/ML 10ML SYR IV PRN (12:59)
[2020-11-20] MEDS ORDERED: fentaNYL citrate 100 MCG/2 ML VIAL IV PRN (12:59)
[2020-11-20] MEDS ORDERED: ePHEDrine sulfate 50 MG/ML AMP IV PRN (12:59)
[2020-11-20] MEDS ORDERED: ONDANSETRON INJ 2 MG/ML 2 ML VIAL IV PRN (12:59)
--- NOTE | 2020-11-20 12:59 | Anesthesiology Consultation ---
Date of Service November 20, 2020 Assessment & Plan (1) Encounter for pre-operative examination: Chart Review Chart Review: Acceptable Risk for Surgery and Patient NOT seen in Pre Admission Testing Consults Requested none ASA ASA3 Proposed Anesthesia Anesthesia Type: General Risk / Benefits Reviewed With: PT / POA / Parent / Guardian, Accepts Plan and In formed Consent Obtained History Surgery Operation Date: 11/20/20 12:20 Proposed Procedures p Incision and Drainage Extremity - Duglas Mathews MD Height/Weight Height: 5 ft 11 in Weight: 121 kg Allergies Allergy/AdvReac Type Severity Reaction Status Date / Time grass pollen Allergy Verified 10/23/20 10:07 No Known Drug Allergies Allergy Verified 10/23/20 10:07 Medications Home Medications Medication Instructions Recorded Confirmed Last Taken acetaminophen [Tylenol Extra 1,000 mg PO Q8H PRN 11/28/19 10/23/20 12/27/19 22:30 Strength] zinc sulfate [Zinc-220] 1 mg PO DAILY 12/28/19 10/23/20 12/27/19 22:30 atorvastatin 40 mg tablet 40 mg PO HS #30 tab 07/15/20 10/23/20 Unknown sildenafil (pulm.hypertension) 20 80 mg PO PRN PRN #120 tab 09/20/20 10/23/20 Unknown mg tablet ascorbic acid (vitamin C) 1,000 mg 2 g PO HS tab 10/09/20 10/23/20 Unknown tablet cholecalciferol (vitamin D3) 125 1,500 unit PO DAILY cap 10/09/20 10/23/20 Unknown mcg (5,000 unit) capsule metformin 500 mg tablet 1,500 mg PO DAILY tab 10/09/20 10/23/20 Unknown mecobalamin (vitamin B12) 1,000 1,000 mcg SUBLINGUAL DAILY #30 tab 10/23/20 10/23/20 Unknown mcg disintegrating tablet,sublingual Active Medications Generic Name Dose Route Start Last Admin Trade Name Freq PRN Reason Stop Dose Admin Heparin Sodium (Porcine) 5,000 units 11/19/20 21:00 11/20/20 08:28 Heparin Sod 5,000 Unit/0.5 Ml Vial SQ 12/19/20 20:59 5,000 units Q12 MISTY Administration Sodium Chloride 1,000 mls @ 100 mls/hr 11/20/20 00:05 11/20/20 10:34 Nss 1000ml IV 12/20/20 00:04 100 mls/hr .Q10H MISTY Administration Piperacillin Sod/Tazobactam 120 mls @ 30 mls/hr 11/20/20 00:00 11/20/20 09:56 Sod 4.5 gm/ Dextrose IV 11/22/20 00:00 30 mls/hr Q8H MISTY Administration Protocol Insulin Aspart 0 units 11/20/20 06:00 11/20/20 11:51 Insulin Aspart 100 Units/Ml 3 Ml Pen SC 12/20/20 05:59 Not Given Q6 MISTY NPO Date Last Intake of Fluids: 11/19/20 Time Last Intake of Fluids: 22:30 Date Last Intake of Solids: 11/19/20 Time Last Intake of Solids: 22:30 Past Medical History Medical History Degenerative disc disease, 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 REASON) Obesity Open wound of thigh with tendon involvement LEFT LOWER EXTREMITY Prediabetes Radicular pain of lower extremity Sensorineural hearing loss (SNHL) of both ears Sensorineural hearing loss (SNHL) of both ears Exercise / Class Metabolic Activity II 4-5 Yardwork/Stairs/Walk up hill Past Family History Family History Grandmother (Maternal) Family history of diabetes mellitus Father Cancer Leukemia Grandfather Heart disease Brother Asthma FH: kidney cancer Denies family history of Ovarian cancer Prostate cancer Myocardial infarction Breast cancer Colorectal cancer Past Surgical History Surgical History History of appendectomy History of colonoscopy History of herniorrhaphy LEFT INGUINAL History of incision and drainage LEFT UPPER BACK THIGH I & D D/T NECROTIZING FASCIITIS (TOTAL 4 SURGERIES). Hx of vasectomy [place] teeth removed Past Anesthesia History No Hx of Anesthesia Complications and No Family Hx of Anesthesia Complications History of PONV No Hx of PONV and No Hx of Motion Sickness Social History Smoking Status: Never smoker Hx Alcohol Use: Yes Alcohol type: beer alcohol intake frequency: holidays/special occasions only Hx Substance Use: No substance use type: does not use Physical Exam Vital Signs Last Vital Signs Temp 37.1 C 11/20/20 12:30 Pulse 81 11/20/20 12:30 Resp 16 11/20/20 12:30 BP 147/84 H 11/20/20 12:30 Pulse Ox 97 11/20/20 12:30 Constitutional + obese ENMT Mouth: no dentition abnormality Thyromental Distance: > or= 3.5 Finger Breadths Mallampati Class: II Neck normal visual inspection Respiratory normal respiratory effort Auscultation: lungs clear to auscultation bilaterally Cardiovascular Rate/Rhythm: regular rate and regular rhythm Psychiatric Orientation: alert Testing Laboratory Results 11/20/20 09:57 11/20/20 09:57 Hemoglobin A1c 6.2 % (4.5-5.6) H 11/19/20 19:11 11/19/20 16:25 Gram Stain - Final Thigh 11/20/20 11/20/20 11:48 05:44 POC Glucose 116 H 133 H
[2020-11-20] MEDS ORDERED: VANCOMYCIN HCL 1000MG/20ML VIAL ONE (13:02)
--- NOTE | 2020-11-20 13:03 | History & Physical Bridge Note ---
Date of Service November 20, 2020 History & Physical Bridge Note I have examined the patient, reviewed the History & Physical and in the interval since the performance of the History & Physical I have noted the following changes of clinical significance: no changes noted. I reviewed the indications and likely incisions for this posterior thigh irrigation debridement. We discussed the likelihood that we will have to place a drain into the space to attempt to prevent seroma development again. His vital signs and labs are improved since yesterday. Culture is still pending. We discussed that his admission will be dependent on finding an appropriate antibiotic regimen for outpatient use. Is aware of the risks and benefits associated with anesthesia and surgery and wants to proceed. Informed consent was documented in the preoperative area today -proceed with left thigh seroma irrigation and debridement.
[2020-11-20] MEDS ORDERED: ePHEDrine sulfate 50 MG/ML AMP ONE (14:36)
[2020-11-20] MEDS ORDERED: PHENYLEPHRINE 100MCG/ML 5ML SYR ONE (14:36)
--- NOTE | 2020-11-20 15:38 | Operative Report ---
PG Post Operative Report Pre & Post Diagnosis Operation Date: 11/20/20 12:20 Pre-Op Diagnosis: LEFT THIGH INFECTION Post-Op Diagnosis: LEFT THIGH INFECTION I identified the patient and participated in the time-out.: Yes Procedure Operation Date: 11/20/20 12:20 Actual Procedures p Incision and Drainage Left Posterior Thigh(Left) - Duglas Mathews MD Surgeon Duglas Mathews MD Azure Architect None Estimated Blood Loss 250 Findings See Below The known seroma did indeed have yellow purulent appearing pus that was easily expressed with a distal incision. The previous drain site appeared to be healthy. A small incision was made in the inferior gluteal region as well as in the mid thigh. The wound bed connected throughout the posterior thigh, as expected. The bed was debrided using versa jet to remove the synovial lining of the seroma. Multiple cultures were taken. Primary closure was achieved over a 15 Czech drain. Specimens 3 separate swab cultures of the wound bed. Drains Single 15 round Czech drain to ROSALIA. 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 The seroma had been refractory to immobilization and multiple aspiration attempts. We also attempted several rounds of sclerotherapy with doxycycline as well as platelet rich plasma. De spite these interventions he remained with 60 cc/week at least of seromatous fluid that had to be drained. Approximately 1 week ago I attempted a pigtail catheter indwelling drain. He developed pain in his buttock and fever and malaise 24 hours ago. He was seen immediately in our clinic and had recommend admission to the hospital for treatment for deep infection related to the drain. Given the appearance on CT and the obvious purulent fluid through the drain, I recommend incision and debridement to remove the infection and potentially reduce the seromatous lesion. Discussed the risk-benefit surgery in detail. The risk discussed include but limited to infection that persists, neurovascular injury, need for repeat or revision washout or debridement, pain syndromes, blood clots, and complications lead anesthesia. He has appropriate questions, demonstrated understanding, elected proceed with surgery. Informed consent was obtained in the preop area today. Description of Procedure On the day of surgery, the patient was greeted in the preoperative holding area. The informed consent was reviewed and confirmed by myself and the patient. The patient identified the surgical site and was marked by me. The patient was then turned over to anesthesia. He was taken to the operating room. Anesthesia was induced and the airway was secured. He was then rolled into the prone position onto the OR table. Hair was clipped to the posterior thigh the proposed incision sites. The left lower extremity was then prepped circumferentially in the usual sterile fashion for lower extremity surgery. Surgical timeout was called by the circulating nurse and verified by all present. Antibiotics have been infused on schedule for his admission. Equipment was available and functional. The pocket was palpated along his previous scar line. I chose to spots for incisions. The first was up high on the inferior gluteal region where there was definitive fluid wave. The second was down in the mid thigh where we had been aspirating and there was a known pocket. Started in the mid thigh with an incision. Electrocautery was used for hemostasis. Once her down through the thick dermal fascial layer, there was easily expressible pocket of fluid. Swab culture was taken here. We completely evacuated the fluid and there was an obvious pocket up and down the whole region the posterior thighs as identified on the CT. I moved to the second incision on the gluteal region. We dissected sharply once again and use electrocautery for hemostasis. Easily entered this pocket. I then made an third incision of about 2 cm in length at the previous drain site to access this area. The drain site incision was relatively clean. We thoroughly irrigated this region. There was no easy pathway into the seromatous lesion and I do not think this percutaneous portion was part of the infection. Return to the large wound bed that was excessive by 2 incisions along his previous scar. Began sharp debridement using curettes. There was a thick synovial lining to the seromatous area. For that reason, we changed to the Versajet for debridement. The versa jet was set to level 7 and use a 45 degree handle to completely remove all of the lining of the seromatous cavity. This was done along the skin flaps in the crevices deep and distal. Were able to access all points palpably and through the 2 incisions. Once there was a bleeding bed throughout. We achieved hemostasis with pressure and minimal electrocautery. I then placed a drain along the wound bed. It was a 15 Czech round drain that exited the far lateral aspect of his gluteal cleft for access. We then ran the drain down underneath the 2 incisions through the whole recess of the seromatous cavity. There was acceptable hemostasis. We then placed 1 g of vancomycin powder throughout the wound bed using a Chavez. This was done to treat the infection as well as provide another sclerosing agent to the seromatous area. We then began wound closure. I used a 2-0 Monocryl suture in the deep dermal layer. I then completed the skin closure using 2-0 nylon suture in an an A llgower-Donati vertical mattress fashion. The drain was free from capture before the final stitch was placed. There was good suction to the ROSALIA drain. We then dressed the wounds with sterile Xeroform, sterile gauze, ABDs and and closed it with residual Ioban dressing. He was then cleansed and drapes were taken down before transfer onto the hospital bed. While in the supine position I applied an web roll and Covan wrap for pressure dressing. He was then turned over anesthesia. He awoke from anesthesia and was extubated the operative without complication and transferred to the PACU in stable condition. Disposition: He will remain an inpatient on parenteral empiric antibiotic coverage while awaiting cultures from the original drain aspiration as well as intraoperative cultures. Once he is transitioned onto a stable regimen for the infection we will discharge him to the hospital. We will keep the pressure wrap over the thigh until he has much reduced drainage. We will plan to leave that drain in place for at least 1 to 2 weeks to avoid reaccumulation of seromatous fluid. You can be weightbearing as tolerated and limit ambulation to only what is necessary. We will begin Lovenox DVT prophylaxis given his immobility and large surgical incision. I attest to the content of the Intraoperative Record and any orders documented therein. Any exceptions are noted below.
[2020-11-20] MEDS ORDERED: oxyCODONE HCL IR 5 MG TAB (IMMEDIATE RELEASE) PO PRN (15:45)
[2020-11-20] MEDS ORDERED: HYDROmorphone INJ 0.5 MG/0.5 ML SYR IV PRN ×2 (15:45)
--- NOTE | 2020-11-20 16:07 | Anesthesiology Progress Note ---
Date of Service November 20, 2020 Anesthesia Post Procedure Vital Signs Vital Signs: Temp Pulse Pulse Resp BP BP Pulse Ox 11/20/20 16:00 36.2 C L 76 15 127/72 94 11/20/20 15:50 81 14 125/70 98 11/20/20 15:40 85 15 120/65 95 11/20/20 15:34 36.1 C L 86 16 112/72 95 11/20/20 12:30 37.1 C 81 16 147/84 H 97 11/20/20 07:14 36.8 C 76 18 123/73 98 11/19/20 21:27 36.9 C 87 20 119/79 97 11/19/20 17:55 37.5 C 95 H 20 144/73 H 95 Transfer of Care Handoff Completed per policy Notes Mental Status: alert / awake / arousable Patient Amnestic to Procedure: Yes Nausea / Vomiting: adequately controlled Pain: adequately controlled Airway Patency, RR, SpO2: stable & adequate BP & HR: stable & adequate Hydration State: stable & adequate Anesthetic Complications: no major complications apparent
[2020-11-20] MEDS ORDERED: ACETAMINOPHEN 500 MG TAB PO PRN (16:33)
[2020-11-20] MEDS: VANCOMYCIN HCL 1,500 MG in SODIUM CHLORIDE 0.9% 500 ML IV SCH (17:36)
[2020-11-20] MEDS: oxyCODONE HCL IR 5 MG TAB (IMMEDIATE RELEASE) PO PRN ×2 (17:36→23:55)
[2020-11-20] MEDS: ASCORBIC ACID 500 MG TAB PO SCH (20:24)
[2020-11-20] MEDS: ATORVASTATIN 40 MG TAB PO SCH (20:24)
[2020-11-21] MEDS: VANCOMYCIN HCL 1,500 MG in SODIUM CHLORIDE 0.9% 500 ML IV SCH ×2 (04:03→14:04)
[2020-11-21] MEDS: oxyCODONE HCL IR 5 MG TAB (IMMEDIATE RELEASE) PO PRN ×2 (06:09→19:46)
[2020-11-21 07:05] LABS: Basophils # (auto) 0.03 K/uL (0-0.2); Basophils % (auto) 0.3 %; Eosinophils # (auto) 0.19 K/uL (0-0.5); Eosinophils % (auto) 1.8 %; Hematocrit (blood only) 40.3 % (42-52); Hemoglobin 13.6 g/dL (14.0-18.0); Immature Granulocytes # (auto) 0.03 K/uL (0.00-0.02); Immature Granulocytes % (auto) 0.3 %; Lymphocytes # (auto) 2.24 K/uL (1.2-3.4); Lymphocytes % (auto) 21.6 %; Mean Corpuscular Hemoglobin 31.2 pg (25-34); Mean Corpuscular Hgb Conc 33.7 g/dL (32-36); Mean Corpuscular Volume 92.4 fL (80-100); Mean Platelet Volume 10.8 fL (7.4-10.4); Monocytes # (auto) 0.92 K/uL (0.11-0.59); Monocytes % (auto) 8.9 %; Neutrophils # (auto) 6.94 K/uL (1.4-6.5); Neutrophils % (auto) 67.1 %; Platelet Count 197 K/uL (130-400); RDW Coefficient of Variation 13.4 % (11.5-14.5); RDW Standard Deviation 45.6 fL (36.4-46.3); Red Blood Count 4.36 M/uL (4.7-6.1); White Blood Count 10.35 K/uL (4.8-10.8)
[2020-11-21 07:42] LABS: Albumin Level 3.2 gm/dl (3.4-5.0); C Reactive Protein 13.5 mg/dl (0-0.29); Calcium 8.7 mg/dl (8.5-10.1); Creatinine Clr Calc Pharmacy 97.5 ml/min; Est GFR (African American) 91.1; Est GFR (Non-African American) 78.6
[2020-11-21 07:45] LABS: Albumin Globulin Ratio 0.9 (0.9-2); Bilirubin,Total 0.7 mg/dl (0.2-1); Globulin 3.7 gm/dl (2.5-4.0); Total Protein 6.9 gm/dl (6.4-8.2)
[2020-11-21] MEDS: PIPERACILLIN/TAZOBACTAM 4.5 GM in DEXTROSE 5% 100 ML IV SCH ×2 (08:23→15:43)
--- NOTE | 2020-11-21 08:23 | Hospitalist Progress Note ---
Date of Service November 21, 2020 Assessment & Plan (1) Suspected soft tissue infection: * Infected seroma vs tissue infection in patient with hx nec fasciitis * CT LEFT FEMUR: 37 x 12 x 1.5 cm soft tissue lesion involving the posterior thigh, containing trace fluid. This is consistent with old seroma, and appears smaller than on the prior April 2020 MRI study. There are no drainable fluid collections. Underlying infection cannot be excluded POD#1 s/p ID with Dr. Mathews on 11/20. EBL 250cc. Single 15round Maori drain to ROSALIA -- to remain in place to prevent re- accumulation (145cc output recorded) * Evacuated fluid collection * Cultures x3 pending from OR -- pin-point growth re-incubating * ID consultation pending given recurrent infections * Heparin changed to Lovenox SQ by primary service * WBC 20.8k--> 14.89k --> 10.3k * H/h 13.6/40.3 -- acute blood loss anemia from surgery as well as dilutional from IVF * Afebrile * CRP essentially unchanged * Lactic wnl * Procal elevated 2.58 * Vanco/Zosyn (day 3) -- continued * Initial cultures from wound with many WBC, many gram + cocci * -->group B strep. 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 Thank you for allowing hospitalist service to participate in the care of Mr. Kelly. Hospitalist service will follow along. Admission and Anticipated Discharge Date Admission Date: November 19, 2020 Subjective Patient evaluated this morning. Feeling great. Minimal discomfort but much improved. Discussed ID consultation still pending. He notes Dr Mathews did mention that yesterday and has cases this morning but will be up for eval this afternoon around 3pm. He is hopeful for d/c home but discussed likely will await cultures to determine appropriate antibiotics. Plans to continue drain for at least couple weeks "as long as it needs to" per his convo with Dr. Mathews. Eating/drinking without issue. Passing gas but no BM -- not unusual for him and he thinks maybe once home would feel more comfortable. No fever, chills, chest pain, shortness of breath, abdominal pain, nausea or vomiting. Review of Systems Review of Systems: All systems reviewed & are unremarkable except as noted in HPI & below Physical Exam Physical Exam: General: awake, alert, no apparent distress, laying comfortably in bed watching TV Head: Normocephalic, atraumatic ENT: PERRL, EOMI, mmm Resp: CTAB, no w/c/r CV: RRR no r/m/g, no edema Abd: +BS, distended, non-tender. no guarding or rigidity : No garcia Skin/Ext: dressing to left lateral thigh and wrap with Coban to lower thigh dressing to lateral thigh with blood drainage noted to dressing minimally tender to palpation inferior-posterior aspect ROSALIA drain with approximately Psych: AOx3, euthymic MSK/Neuro: strength equal throughout, moves all extremities. NVI pulses palpable bilaterally Results & Data Results & Data ([facility]) Vital Signs (Past 12 Hours) Vital Signs Temp Pulse Resp BP Pulse Ox 11/21/20 07:01 36.5 C 71 12 112/69 96 11/21/20 03:29 36.9 C 72 16 113/69 94 11/20/20 23:33 37.4 C 83 18 128/75 94 Laboratory Results 11/21/20 11/21/20 11/21/20 Range/Units 07:35 06:21 06:21 WBC 10.35 (4.8-10.8) K/uL RBC 4.36 L (4.7-6.1) M/uL Hgb 13.6 L (14.0-18.0) g/dL Hct 40.3 L (42-52) % MCV 92.4 (80-100) fL MCH 31.2 (25-34) pg MCHC 33.7 (32-36) g/dL RDW Std Deviation 45.6 (36.4-46.3) fL RDW Coeff of Daniel 13.4 (11.5-14.5) % Plt Count 197 (130-400) K/uL MPV 10.8 H (7.4-10.4) fL Immature Gran % (Auto) 0.3 % Neut % (Auto) 67.1 % Lymph % (Auto) 21.6 % Mayes % (Auto) 8.9 % Eos % (Auto) 1.8 % Baso % (Auto) 0.3 % Neut # (Auto) 6.94 H (1.4-6.5) K/uL Lymph # (Auto) 2.24 (1.2-3.4) K/uL Mayes # (Auto) 0.92 H (0.11-0.59) K/uL Eos # (Auto) 0.19 (0-0.5) K/uL Baso # (Auto) 0.03 (0-0.2) K/uL Immature Gran # (Auto) 0.03 H (0.00-0.02) K/uL Sodium 139 (136-145) mmol/L Potassium 4.0 (3.5-5.1) mmol/L Chloride 108 H (98-107) mmol/L Carbon Dioxide 25 (21-32) mmol/L Anion Gap 6.0 (3-11) BUN 11 (7-18) mg/dl Creatinine 1.00 (0.6-1.4) mg/dl Est Cr Clr Drug Dosing 97.5 ml/min Est GFR ( Amer) 91.1 Est GFR (Non-Af Amer) 78.6 BUN/Creatinine Ratio 11.0 (10-20) Glucose 109 H (70-99) mg/dl POC Glucose 109 H (70-99) mg/dl Estimat Average Glucose mg/dl Hemoglobin A1c (4.5-5.6) % Calcium 8.7 (8.5-10.1) mg/dl Total Bilirubin 0.7 (0.2-1) mg/dl AST 11 L (15-37) U/L ALT 33 (12-78) U/L Alkaline Phosphatase 72 (45-117) U/L C-Reactive Protein 13.50 H (0-0.29) mg/dl Total Protein 6.9 (6.4-8.2) gm/dl Albumin 3.2 L (3.4-5.0) gm/dl Globulin 3.7 (2.5-4.0) gm/dl Albumin/Globulin Ratio 0.9 (0.9-2) 11/20/20 11/20/20 11/20/20 Range/Units 20:45 17:26 15:38 WBC (4.8-10.8) K/uL RBC (4.7-6.1) M/uL Hgb (14.0-18.0) g/dL Hct (42-52) % MCV (80-100) fL MCH (25-34) pg MCHC (32-36) g/dL RDW Std Deviation (36.4-46.3) fL RDW Coeff of Daniel (11.5-14.5) % Plt Count (130-400) K/uL MPV (7.4-10.4) fL Immature Gran % (Auto) % Neut % (Auto) % Lymph % (Auto) % Mayes % (Auto) % Eos % (Auto) % Baso % (Auto) % Neut # (Auto) (1.4-6.5) K/uL Lymph # (Auto) (1.2-3.4) K/uL Mayes # (Auto) (0.11-0.59) K/uL Eos # (Auto) (0-0.5) K/uL Baso # (Auto) (0-0.2) K/uL Immature Gran # (Auto) (0.00-0.02) K/uL Sodium (136-145) mmol/L Potassium (3.5-5.1) mmol/L Chloride (98-107) mmol/L Carbon Dioxide (21-32) mmol/L Anion Gap (3-11) BUN (7-18) mg/dl Creatinine (0.6-1.4) mg/dl Est Cr Clr Drug Dosing ml/min Est GFR ( Amer) Est GFR (Non-Af Amer) BUN/Creatinine Ratio (10-20) Glucose (70-99) mg/dl POC Glucose 114 H 100 H 110 H (70-99) mg/dl Estimat Average Glucose mg/dl Hemoglobin A1c (4.5-5.6) % Calcium (8.5-10.1) mg/dl Total Bilirubin (0.2-1) mg/dl AST (15-37) U/L ALT (12-78) U/L Alkaline Phosphatase (45-117) U/L C-Reactive Protein (0-0.29) mg/dl Total Protein (6.4-8.2) gm/dl Albumin (3.4-5.0) gm/dl Globulin (2.5-4.0) gm/dl Albumin/Globulin Ratio (0.9-2) 11/20/20 11/20/20 11/20/20 Range/Units 11:48 09:57 09:57 WBC 14.89 H (4.8-10.8) K/uL RBC 4.42 L (4.7-6.1) M/uL Hgb 14.1 (14.0-18.0) g/dL Hct 40.7 L (42-52) % MCV 92.1 (80-100) fL MCH 31.9 (25-34) pg MCHC 34.6 (32-36) g/dL RDW Std Deviation 44.3 (36.4-46.3) fL RDW Coeff of Daniel 13.2 (11.5-14.5) % Plt Count 185 (130-400) K/uL MPV 10.4 (7.4-10.4) fL Immature Gran % (Auto) 0.2 % Neut % (Auto) 79.0 % Lymph % (Auto) 14.2 % Mayes % (Auto) 5.8 % Eos % (Auto) 0.5 % Baso % (Auto) 0.3 % Neut # (Auto) 11.75 H (1.4-6.5) K/uL Lymph # (Auto) 2.12 (1.2-3.4) K/uL Mayes # (Auto) 0.87 H (0.11-0.59) K/uL Eos # (Auto) 0.08 (0-0.5) K/uL Baso # (Auto) 0.04 (0-0.2) K/uL Immature Gran # (Auto) 0.03 H (0.00-0.02) K/uL Sodium 139 (136-145) mmol/L Potassium 4.0 (3.5-5.1) mmol/L Chloride 110 H (98-107) mmol/L Carbon Dioxide 27 (21-32) mmol/L Anion Gap 2.0 L (3-11) BUN 16 (7-18) mg/dl Creatinine 0.93 (0.6-1.4) mg/dl Est Cr Clr Drug Dosing 104.8 ml/min Est GFR ( Amer) 99.5 Est GFR (Non-Af Amer) 85.8 BUN/Creatinine Ratio 16.8 (10-20) Glucose 128 H (70-99) mg/dl POC Glucose 116 H (70-99) mg/dl Estimat Average Glucose mg/dl Hemoglobin A1c (4.5-5.6) % Calcium 8.8 (8.5-10.1) mg/dl Total Bilirubin 0.7 (0.2-1) mg/dl AST 14 L (15-37) U/L ALT 41 (12-78) U/L Alkaline Phosphatase 70 (45-117) U/L C-Reactive Protein (0-0.29) mg/dl Total Protein 6.5 (6.4-8.2) gm/dl Albumin 3.3 L (3.4-5.0) gm/dl Globulin 3.2 (2.5-4.0) gm/dl Albumin/Globulin Ratio 1.0 (0.9-2) 11/20/20 11/19/20 Range/Units 08:57 19:11 WBC (4.8-10.8) K/uL RBC (4.7-6.1) M/uL Hgb (14.0-18.0) g/dL Hct (42-52) % MCV (80-100) fL MCH (25-34) pg MCHC (32-36) g/dL RDW Std Deviation (36.4-46.3) fL RDW Coeff of Daniel (11.5-14.5) % Plt Count (130-400) K/uL MPV (7.4-10.4) fL Immature Gran % (Auto) % Neut % (Auto) % Lymph % (Auto) % Mayes % (Auto) % Eos % (Auto) % Baso % (Auto) % Neut # (Auto) (1.4-6.5) K/uL Lymph # (Auto) (1.2-3.4) K/uL Mayes # (Auto) (0.11-0.59) K/uL Eos # (Auto) (0-0.5) K/uL Baso # (Auto) (0-0.2) K/uL Immature Gran # (Auto) (0.00-0.02) K/uL Sodium (136-145) mmol/L Potassium (3.5-5.1) mmol/L Chloride (98-107) mmol/L Carbon Dioxide (21-32) mmol/L Anion Gap (3-11) BUN (7-18) mg/dl Creatinine 1.00 D (0.6-1.4) mg/dl Est Cr Clr Drug Dosing 97.5 ml/min Est GFR ( Amer) 91.1 Est GFR (Non-Af Amer) 78.6 BUN/Creatinine Ratio (10-20) Glucose (70-99) mg/dl POC Glucose (70-99) mg/dl Estimat Average Glucose 131 mg/dl Hemoglobin A1c 6.2 H (4.5-5.6) % Calcium (8.5-10.1) mg/dl Total Bilirubin (0.2-1) mg/dl AST (15-37) U/L ALT (12-78) U/L Alkaline Phosphatase (45-117) U/L C-Reactive Protein (0-0.29) mg/dl Total Protein (6.4-8.2) gm/dl Albumin (3.4-5.0) gm/dl Globulin (2.5-4.0) gm/dl Albumin/Globulin Ratio (0.9-2) PG Care Time/CCT Total # of Minutes Spent Total Time Spent with Patient: Total time spent is greater than 50% in coordination of care (as documented) at patient's floor/unit and/or counseling patient: Coding Level of Care Code 30744 Subseq Hosp Care Lvl 2 Diagnoses Suspected soft tissue infection R68.89 Metabolic syndrome E88.81 Hyperlipidemia E78.5 Hyperlipidemia type: unspecified Type 2 diabetes mellitus E11.69 Diabetes mellitus [facility] insulin use: without [facility] use Diabetes mellitus complication status: with other specified complication DVT prophylaxis Z29.9 (1) Hyperlipidemia Hyperlipidemia type: unspecified Qualified Code(s): E78.5 - Hyperlipidemia, unspecified (2) Type 2 diabetes mellitus 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
[2020-11-21] MEDS: ENOXAPARIN INJ 40 MG/0.4 ML SYR SQ SCH (08:24)
[2020-11-21] MEDS: CHOLECALCIFEROL 1,000 UNITS 25 MCG TAB PO SCH (08:25)
[2020-11-21] MEDS: ZINC SULFATE 220 MG CAPSULE PO SCH (08:25)
[2020-11-21] MEDS: CYANOCOBALAMIN 500 MCG TABLET (VITAMIN B-12) PO SCH (08:25)
[2020-11-21] MEDS: INSULIN ASPART 100 UNITS/ML 3 ML PEN SC SCH ×4 (08:44→20:49)
[2020-11-21] MEDS ORDERED: VANCOMYCIN TROUGH ONE (13:30)
--- NOTE | 2020-11-21 14:35 | Orthopedic Progress Note ---
Date of Service November 21, 2020 Assessment & Plan (1) Suspected soft tissue infection: POD1. Making uncomplicated progress. Clinic culture resulted and first look at OR cx corresponds. - plan for continued drain due to previous chronic seroma. will take out in clinic - appreciate hospitalist care. awaiting ID guidance on abx plan before discharge -will dc on lovenox until drain is out and regularly ambulatory ~ 2 weeks Subjective Reports no issues. Good appetite. Pain is tolerable. Review of Systems All systems reviewed & are unremarkable except as noted in HPI & below. Physical Exam LLE: Dressing clean dry and intact. drain output is sanguinous. DNVI. Constitutional WD/WN, vitals as above no acute distress and not intoxicated appearing Respiratory normal respiratory effort; no labored breathing Cardiovascular Extremities: normal capillary refill Results & Data Results & Data Laboratory Results Laboratory Tests 11/19/20 11/20/20 11/21/20 19:11 09:57 06:21 WBC 14.89 H 10.35 Hct 43.0 40.7 L 40.3 L Neut # (Auto) 11.75 H 6.94 H Microbiology 11/20/20 14:13 Leg,Left Gram Stain - Final 11/19/20 16:25 Thigh Gram Stain - Final 11/20/20 14:13 Leg,Left Aerobic and Anaerobic Culture - Preliminary Group B Beta Strep 11/19/20 16:25 Thigh Aerobic and Anaerobic Culture - Preliminary Group B Beta Strep Aero/Gaye Cult Preliminary 11/21/20-1131 Organism 1 Group B Beta Strep Quantity Many Sens Sensitivities to Follow Grp.B Strp RX M.I.C. --- --------- Ampicillin S 0.12 Azithromycin R >2 Cefepime S <=0.25 Cefotaxime S <=0.25 Ceftriaxone S <=0.25 Chloramphenicol S 4 Clindamycin R >0.5 Erythromycin R >0.5 Penicillin S 0.06 Vancomycin S 1 S = SENSITIVE I = INTERMEDIATE R = RESISTANT Diagnostic Findings . PG Care Time/CCT Total # of Minutes Spent Total Time Spent with Patient: Total time spent is greater than 50% in coordination of care (as documented) at patient's floor/unit and/or counseling patient: Coding Level of Care Code 27122 Post Operative Follow-Up Diagnoses Suspected soft tissue infection R68.89
--- NOTE | 2020-11-21 15:18 | Pharmacy Report ---
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 Level was drawn at the appropriate time. Prior doses were hung according to schedule. * Continue dose of 1500 mg IV every 10 hours * Goal trough level for skin / skin structure infxn : 10 to 20 mcg/mL * Will not check a repeat trough level unless therapy is extended beyond 11/22 Zosyn * eCrCl > 20, BMI > 37.2, Continue 4.5gm ext-infusion Q 8 hrs Pharmacy will continue to follow and will adjust dose/frequency as necessary. Thank you.
[2020-11-21] MEDS: ATORVASTATIN 40 MG TAB PO SCH (20:56)
[2020-11-21] MEDS: ASCORBIC ACID 500 MG TAB PO SCH (20:57)
[2020-11-21] MEDS: PENICILLIN G POTASSIUM 3 MU in DEXTROSE 5% 100 ML IV SCH (22:33)
[2020-11-22] MEDS: PENICILLIN G POTASSIUM 3 MU in DEXTROSE 5% 100 ML IV SCH ×3 (02:25→12:42)
[2020-11-22 07:35] LABS: Basophils # (auto) 0.05 K/uL (0-0.2); Basophils % (auto) 0.8 %; Eosinophils # (auto) 0.26 K/uL (0-0.5); Eosinophils % (auto) 4.2 %; Hematocrit (blood only) 40.3 % (42-52); Hemoglobin 13.6 g/dL (14.0-18.0); Immature Granulocytes # (auto) 0.01 K/uL (0.00-0.02); Immature Granulocytes % (auto) 0.2 %; Lymphocytes # (auto) 1.68 K/uL (1.2-3.4); Mean Corpuscular Hemoglobin 31.1 pg (25-34); Mean Corpuscular Hgb Conc 33.7 g/dL (32-36); Mean Platelet Volume 10.6 fL (7.4-10.4); Monocytes % (auto) 9.6 %; Neutrophils # (auto) 3.63 K/uL (1.4-6.5); Neutrophils % (auto) 58.2 %; Platelet Count 219 K/uL (130-400); RDW Coefficient of Variation 12.9 % (11.5-14.5); Red Blood Count 4.38 M/uL (4.7-6.1); White Blood Count 6.23 K/uL (4.8-10.8)
[2020-11-22 08:12] LABS: BUN Creatinine Ratio 13.1 (10-20); Calcium 9.2 mg/dl (8.5-10.1); Creatinine Clr Calc Pharmacy 99.5 ml/min; Est GFR (African American) 93.4; Est GFR (Non-African American) 80.6; Potassium 3.9 mmol/L (3.5-5.1)
--- NOTE | 2020-11-22 08:25 | Orthopedic Progress Note ---
Date of Service November 22, 2020 Assessment & Plan (1) Suspected soft tissue infection: POD2. Making uncomplicated progress. No evidence of ongoing infection - Ready for transition to outpatient antibiotic plan - Will see for dressing change and wound eval on Saturday 11/25 - Drain will remain in place for discharge - Appreciate Hospitalist consult/mgt and consult to ID Subjective Feels 'great'. No issues reported. Wants to be discharged ROSALIA - waiting on antibiotic plan. Review of Systems All systems reviewed & are unremarkable except as noted in HPI & below. Physical Exam LLE: Dressing clean dry and intact. drain output is sanguinous. No erythema. No palpable fluid collections. DNVI. Constitutional WD/WN, vitals as above no acute distress and not intoxicated appearing Respiratory normal respiratory effort; no labored breathing Cardiovascular Extremities: normal capillary refill Results & Data Results & Data Laboratory Results WBC normal Diagnostic Findings Drain output 15ml overnight. Drain line stripped. PG Care Time/CCT Total # of Minutes Spent Total Time Spent with Patient: Total time spent is greater than 50% in coordination of care (as documented) at patient's floor/unit and/or counseling patient: Coding Level of Care Code 86076 Post Operative Follow-Up Diagnoses Suspected soft tissue infection R68.89
[2020-11-22] MEDS: CYANOCOBALAMIN 500 MCG TABLET (VITAMIN B-12) PO SCH (09:10)
[2020-11-22] MEDS: CHOLECALCIFEROL 1,000 UNITS 25 MCG TAB PO SCH (09:12)
[2020-11-22] MEDS: ZINC SULFATE 220 MG CAPSULE PO SCH (09:13)
[2020-11-22] MEDS: ENOXAPARIN INJ 40 MG/0.4 ML SYR SQ SCH (09:14)
[2020-11-22] MEDS: INSULIN ASPART 100 UNITS/ML 3 ML PEN SC SCH ×3 (09:59→18:24)
--- NOTE | 2020-11-22 11:57 | Hospitalist Progress Note ---
Date of Service November 22, 2020 Assessment & Plan (1) Suspected soft tissue infection: * Infected seroma vs tissue infection in patient with hx nec fasciitis * CT LEFT FEMUR: 37 x 12 x 1.5 cm soft tissue lesion involving the posterior thigh, containing trace fluid. This is consistent with old seroma, and appears smaller than on the prior April 2020 MRI study. There are no drainable fluid collections. Underlying infection cannot be excluded POD#2 s/p ID with Dr. Mathews on 11/20. EBL 250cc. Single 15round Sinhala drain to ROSALIA -- to remain in place to prevent re- accumulation (145cc output recorded) * Evacuated fluid collection * Cultures x3 pending from OR -- pin-point growth re-incubating * ID consultation pending given recurrent infections * Heparin changed to Lovenox SQ by primary service * WBC 20.8k--> 14.89k --> 10.3k * H/h 13.6/40.3 -- acute blood loss anemia from surgery as well as dilutional from IVF * Afebrile * CRP essentially unchanged * Lactic wnl * Procal elevated 2.58 * Vanco/Zosyn IV * Initial cultures from wound with many WBC, many gram + cocci * Resistant to Azithromycin, Clinda, Erythromycin mission but obtained last evening ID consultation pending -- patient states Dr. Vieyra mentioned about a continuous abx infusion with bag for him to take with him in addition to oral antibiotics. Messaged on [employer] to see if able to get response sooner than note currently available to avoid holding up discharge as it is Wednesday and if IV abx are needed this may be an issue. CM following and able to assist as soon as recommendations received Talked with Dr Vieyra who recommended Unasyn 3gm IV Q6H for 3 weeks. Will have weekly CBC, CMP Ordered US guided peripheral IV CM following and given rx for abx. Set up for infusion company to meet him tomorrow am. Patient states he wants to go home tonight regardless --> discussed with Dr. Mathews and recommend patient staying overnight and d/c in AM when able to meet company for abx but will leave ultimate decision to him. Would prefer he stay overnight for abx and d/c early AM to meet them to ensure continued abx without missed dose (2) Metabolic syndrome: * Continue statin, and glucose control, patient is controlling his weight with activity * TAHIR but not utilizing CPAP/BiPAP at baseline (3) Hyperlipidemia: * As above -- continue atorvastatin 40mg HS tonight (4) Type 2 diabetes mellitus: * Hold metformin 1500mg daily as taken CASE PLANNER * - placed on sliding scale for goal <180 * A1c 6.2 from 6.1 * BSGs acceptable -- continue to monitor (5) DVT prophylaxis: * Heparin 5000 sub q BID per primary team --> switched to Lovenox post- operatively and to be continued at discharge * SCD's Dispo: ideally would keep overnight for continued abx with d/c in early AM but will let ultimate decision to Dr. Mathews Rx given to CM Weekly labs CBC, CMP Hospitalist service will sign off at this time. Please call with any questions/concerns Admission and Anticipated Discharge Date Admission Date: November 19, 2020 Subjective Patient evaluated this morning. He had his ID consultation this morning and mentioned about a continuous abx pump/bag as well as orals. Note not yet in system -- discussed will message Dr Vieyra to see if able to g et the information quicker than note available to see what recommendations are so that we can coordinate with primary service to get him discharged today. He does some voice some frustrations with [facility] ID service and delay in consultation but also notes he has had nothing but good things to say about Dr. Mathews, trevon alicea or the care he has been receiving here. No fevers, chills, chest pain, shortness of breath, abdominal pain. To have drain check on Wednesday with nursing per communication with ortho's office. Feeling good and plans for discharge today. Review of Systems Review of Systems: All systems reviewed & are unremarkable except as noted in HPI & below Physical Exam Physical Exam: General: awake, alert, no apparent distress, laying comfortably in bed watching TV Head: Normocephalic, atraumatic ENT: PERRL, EOMI, mmm Resp: CTAB, no w/c/r CV: RRR no r/m/g, no edema Abd: +BS, distended, non-tender. no guarding or rigidity : No garcia Skin/Ext: dressing to left lateral thigh and wrap with Coban to lower thigh dressing to lateral thigh with blood drainage noted to dressing minimally tender to palpation inferior-posterior aspect ROSALIA drain with scant serosanguineous drainage noted Psych: AOx3 MSK/Neuro: strength equal throughout, moves all extremities. NVI pulses palpable bilaterally Results & Data Results & Data ([facility]) Vital Signs (Past 12 Hours) Vital Signs Temp Pulse Resp BP Pulse Ox 11/22/20 08:00 36.8 C 60 16 144/82 H 96 PG Care Time/CCT Total # of Minutes Spent Total Time Spent with Patient: Total time spent is greater than 50% in coordination of care (as documented) at patient's floor/unit and/or counseling patient: Prolonged Care Time Prolonged Care Time: Yes Total Prolonged Care Time: 120 time spent coordinating with primary, discussion with infectious disease provider, arranging home IV abx and multiple discussions with patient Coding Level of Care Code 04688 Subseq Hosp Care Lvl 3 (25 - SIGNIFICANT, SEPARATELY IDENTIFIABLE ) Diagnoses Suspected soft tissue infection R68.89 Metabolic syndrome E88.81 Hyperlipidemia E78.5 Hyperlipidemia type: unspecified Type 2 diabetes mellitus E11.69 Diabetes mellitus complication status: with other specified complication Diabetes mellitus termite exterminator insulin use: without termite exterminator use DVT prophylaxis Z29.9 Additional Codes Prolonged Care Time - Prolonged Care Time: Yes ([id number]) (1) Type 2 diabetes mellitus Diabetes mellitus complication status: with other specified complication Diabetes mellitus correction insulin use: without termite exterminator use Qualified Code(s): E11.69 - Type 2 diabetes mellitus with other specified complication (2) Hyperlipidemia Hyperlipidemia type: unspecified Qualified Code(s): E78.5 - Hyperlipidemia, unspecified
[2020-11-22] MEDS: AMPICILLIN/SULBACTAM SOD 3,000 MG in 0.9 % SODIUM CHLORIDE 100 ML IV SCH ×2 (13:13→18:23)
[2020-11-22] MEDS ORDERED: Nursing to Pharmacy Communication SCH (17:45)
--- NOTE | 2020-11-26 16:53 | Discharge Summary ---
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 Admission Exam Per Admitting Provider Tender fluctuant posterior thigh seroma. Principal Diagnosis Left posterior thigh infected seroma. Discharge Exam Wound dressing is clean dry and intact. The ROSALIA bulb suction drain was functional. Neurovascular intact. Pain well controlled. Discharge Data Allergies Allergy/AdvReac Type Severity Reaction Status Date / Time grass pollen Allergy Verified 11/26/20 16:10 No Known Drug Allergies Allergy Verified 11/26/20 16:10 Consultations 11/19/20 17:27 Consult Internal Medicine Routine 11/20/20 18:24 Consult Infectious Diseases Routine Procedures Performed Operation Date: 11/20/20 12:20 Actual Procedures p Incision and Drainage Left Posterior Thigh(Left) - Duglas Mathews MD Ordered Studies 11/19/20 17:39 CT femur LT w con Urgent Hospital Course (1) Suspected soft tissue infection: Patient was admitted for initiation of parenteral IV therapy for a deep soft tissue infection. Hospitalist consult was obtained to assist with IV antibiotic management for this complex soft tissue infection. The following hospital day he underwent incision, irrigation debridement of the posterior thigh chronic seroma. The fluid evacuated appear to be infected and several cultures were obtained. The original culture from the drainage in clinic resulted on hospital day 2 as a group B beta strep. Infectious disease consult was obtained for guidance on antibiotics. Recommendations were for continue parenteral therapy for 3 weeks. Outpatient home nursing support for the parenteral antibiotic therapy was obtained and the patient was discharged home in stable condition with a ROSALIA drain to be managed by me in the outpatient orthopedic clinic as well as IV antibiotics. Total Time Total Time Spent Total Time Spent (In Minutes): 30 Total Time Includes: Examination of the Patient, Discharge Planning, Medication Reconciliation and Communication With Other Providers Discharge Plan Discharge Items Patient Disposition: Home - Self-Care Reason For Visit: LEFT THIGH INFECTION Discharge Diagnosis: lefft thigh infected seroma Activity: Per Instructions section Bathing: Keep incision dry Non-emergency contact: Surgeon Call non-emergency contact if: you have any medication questions, your pain is worsening and your temperature is above 101 Follow-up/Referrals: Jamie Juarez DO [Primary Care Provider] - 03/18/21 () Duglas Mathews MD [Surgeon] - Diet: Regular Addtl Attending Provider Instructions: Minimize walking to only necessary activities of daily living to minimize fluid reaccumalation Monitor and record drain output daily. Continue antibiotics as prescribed. Leave dressing in place. Ortho will arrange for change in clinic on Wednesday. Keep area dry. Use Lovenox daily as prescribed. Pending Studies at Discharge: No Stand-Alone Forms: My [facility] frenting, Opioid Pain Management Medications and DC Order Prescriptions: New enoxaparin 40 mg/0.4 mL Syringe 40 mg subcut QAM 14 Days Qty: 5.6 RF: 0 ampicillin-sulbactam [Unasyn] 3 gram recon soln 3 g IM Q6H 21 Days Qty: 10 RF: 0 Continued mecobalamin (vitamin B12) 1,000 mcg tablet,disintegrating 1,000 mcg sublingual DAILY Qty: 30 RF: 0 cholecalciferol (vitamin D3) 125 mcg (5,000 unit) capsule 1,500 unit PO DAILY RF: 0 atorvastatin 40 mg tablet 40 mg PO HS Qty: 30 RF: 5 ascorbic acid (vitamin C) [Vitamin C] 1,000 mg tablet 2 g PO HS RF: 0 No Action metformin 500 mg tablet 1,500 mg PO QPM RF: 0 zinc sulfate [Zinc-220] 50 mg zinc (220 mg) capsule 1 mg PO QAM RF: 0 Discharge Orders: Discharge Order (Routine); Ordered 11/22/20 Ordered By: Duglas Javed/Other Patient Handouts: 5 Steps for Eating Healthier, A1C Admission Data Admit Date/Time: 11/19/20 17:51 Attending Provider: Duglas Mathews Admit Provider: Duglas Mathews Primary Care Provider: Jamie Juarez Other Providers: Johnathan Wheat ; Анна Tran ; Craig Basilio ; Mumtaz Taylor ; Cyndy Guaman ; Matias Magana ; Dick Peterson ; Glen Salcedo ; Silvana Fitch ; Rachael Caldwell ; Sudheer Leon ; Ainsley Holt ; Casie Patterson ; Maxim Juarez ; Nehemias Villarreal ; Fiona Savage ; Shemar Dunaway ; Mario Metz ; Reynaldo Colindres ; Bear Fleming ; Craig Cano ; Momo Mendoza ; Kiarra Ordonez ; Javier Culver ; Vic Lee ; Ridge Rodgers ; Yasmine Luis ; Karl Patterson I. ; Allan Vieyra II ; Mercedes Stephens ; Artemio Topete Other Interventions: Discharge Summary Assessment (RN) Last Done: 11/22/20 18:32 Coding Level of Care Code D/C Day Management <30 mins Diagnoses Suspected soft tissue infection R68.89
== END 2020-11-22 20:26 | disposition home health service (06) | DRG 908 ==
LOC: 3N 17:51